=== PATIENT | female | born 1965 | race Caucasian/White ===

== ENCOUNTER → 2020-12-26 15:02 | Outpatient (BNVA) | payer MEDICARE, MEDICAID, SELFPAY | PROVIDERS: Family Provider Family Medicine; PCP Nurse Practitioner; Visit Provider Nurse Practitioner | DX: G43.909 Migraine, unspecified, not intractable, without status migrainosus (principal); F31.9 Bipolar disorder, unspecified; E78.2 Mixed hyperlipidemia; J30.89 Other allergic rhinitis; E55.9 Vitamin D deficiency, unspecified; Z91.030 Bee allergy status; Z79.890 Hormone replacement therapy | CPT/HCPCS: 80053; 80061; 81000; 82306; 82607; 84443; 85025 ==

== ENCOUNTER → 2021-04-09 11:04 | Outpatient (BNVA) | payer MEDICARE, MEDICAID, SELFPAY | PROVIDERS: Family Provider Family Medicine; PCP Nurse Practitioner; Visit Provider Nurse Practitioner | DX: E78.2 Mixed hyperlipidemia (principal); E55.9 Vitamin D deficiency, unspecified; J98.01 Acute bronchospasm; F31.9 Bipolar disorder, unspecified; J30.89 Other allergic rhinitis; Z79.890 Hormone replacement therapy | CPT/HCPCS: 80053; 80061; 82306 ==

== ENCOUNTER → 2021-09-18 13:31 | Outpatient (BNVA) | payer MEDICARE, SELFPAY | PROVIDERS: Family Provider Family Medicine; PCP Nurse Practitioner; Visit Provider Nurse Practitioner | DX: E78.2 Mixed hyperlipidemia (principal); E55.9 Vitamin D deficiency, unspecified; Z12.39 Encounter for other screening for malignant neoplasm of breast | CPT/HCPCS: 80053; 80061; 82306; 83721 ==

== ENCOUNTER 2022-07-09 15:10 | Emergency (ER) | payer MEDICARE, SELFPAY ==
[2022-07-09 16:08] VITALS: BP 142/84; PULSE 77; RESP 18; TEMP 36.8; O2SAT 97; BMI 25.8
[2022-07-09 17:24] LABS: Add Urine Microscopic? YES; Bacteria Urine 2+ /hpf; Bilirubin Urine Neg (Negative); Blood Urine 3+ (Negative); Glucose Urine UA Norm (Normal); Ketones Urine Negative (Negative); Leukocyte Esterase Urine 2+ (Negative); Nitrate Urine Negative (Negative); Protein Urine 1+ (Negative); RBC Urine 0-4 /hpf (0-2); Specific Gravity, Urine 1.015 (1.005-1.030); Squamous Epithelial Cell Urine 0-4 /hpf (0-5); Urine Appearance Hazy (CLEAR); Urine Color Yellow (Yellow); Urobilinogen Urine Norm (Negative); WBC Urine >100 /hpf (0-5); pH Urine 6 (5-7)
[2022-07-09 17:25] LABS: Add Urine Culture? Yes
== END 2022-07-09 18:58 | disposition left against medical advice (07) ==
PROVIDERS: Emergency Provider Family Medicine; PCP Nurse Practitioner
DX: Z53.21 Procedure and treatment not carried out due to patient leaving prior to being seen by health care provider (principal); N23 Unspecified renal colic
CPT/HCPCS: 81001; 87077; 87086; 87186

== ENCOUNTER → 2022-07-17 11:05 | Outpatient (BNVA) | payer MEDICARE, SELFPAY | PROVIDERS: PCP Nurse Practitioner; Visit Provider Nurse Practitioner | DX: Z11.3 Encounter for screening for infections with a predominantly sexual mode of transmission (principal); R10.2 Pelvic and perineal pain; N39.0 Urinary tract infection, site not specified; B96.20 Unspecified Escherichia coli [E. coli] as the cause of diseases classified elsewhere | CPT/HCPCS: 74018; 87491; 87591 ==

== ENCOUNTER → 2023-06-04 09:38 | Outpatient (BNVA) | payer MEDICARE, SELFPAY | PROVIDERS: PCP Nurse Practitioner; Visit Provider Nurse Practitioner | DX: R00.2 Palpitations (principal); F31.9 Bipolar disorder, unspecified; E78.2 Mixed hyperlipidemia; F41.9 Anxiety disorder, unspecified; F32.9 Major depressive disorder, single episode, unspecified; M25.551 Pain in right hip; J45.909 Unspecified asthma, uncomplicated; J98.01 Acute bronchospasm; E55.9 Vitamin D deficiency, unspecified | CPT/HCPCS: 71046; 73502; 80053; 80061; 82306; 84443 ==

== ENCOUNTER 2023-12-08 10:51 | Emergency (ER) | payer MEDICARE, SELFPAY ==
--- NOTE | 2023-12-08 10:54 | ECG_ITS ---
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 Measurements Intervals [place] Rate: 73 P: 59 UT: 171 QRS: 31 QRSD: 84 T: 55 QT: 366 QTc: 404 Interpretive Statements SINUS RHYTHM POSSIBLE ANTERIOR MYOCARDIAL INFARCTION , OF INDETERMINATE AGE [30 ms Q WAVE IN V3/V4, OR R < 0.2 mV IN V4] Compared to ECG 08/08/2018 13:45:00 Myocardial infarct finding now present Electronically Signed On 12-08-2023 11:25:26 CDT by Rober Shine M.D. [email or web address] specialty [id number] f
--- NOTE | 2023-12-08 10:54 | XR_ITS ---
WS: [id number] Exam: XR chest 1V portable [id number] Date/Time of Exam: 12/08/2023 11:08 AM Reason For Exam: cp Comparison 06/04/2023. The lungs are clear and fully expanded. Normal cardiomediastinal silhouette. No pleural effusions. [place] structures are intact. IMPRESSION: 1. No acute cardiopulmonary process.
[2023-12-08 11:07] VITALS: BP 153/95; PULSE 86; TEMP 36.6; O2SAT 96; BMI 26.9
[2023-12-08 11:22] LABS: Basophils % 0.6 %; Eosinophils # 0.2 10^3/uL (0.0-0.8); Eosinophils % 2.3 %; Hematocrit 48.7 % (36-47); Lymphocytes # 1.7 10^3/uL (0.8-4.8); Lymphocytes % 26.1 %; Mean Corpuscular HGB Conc 33.5 g/dL (30-55); Mean Corpuscular Hemoglobin 31.7 pg (27-33); Mean Corpuscular Volume 94.6 fl (85-98); Mean Platelet Volume 9.4 fL (7.4-10.4); Monocytes # 0.5 10^3/uL (0.2-0.9); Monocytes % 7.6 %; Neutrophils # 4.08 10^3/uL (1.8-7.7); Neutrophils % 63.1 %; Nucleated Red Blood Cells % 0 %; Platelet Count 218 10^3/cmm (157-399); Red Blood Count 5.15 10^6/uL (3.85-5.65); Red Cell Distribution Width 12.7 % (12.1-15.1); White Blood Count 6.47 10^3/uL (3.29-11.43)
[2023-12-08 11:34] VITALS: BP 164/100; PULSE 74; RESP 16; O2SAT 94
[2023-12-08 11:35] LABS: INR 0.92 (0.8-1.2)
--- NOTE | 2023-12-08 11:35 | ED_ITS ---
HPI - Chest Pain 2 General: Chief Complaint: Chest Pain Stated Complaint: CHEST PAIN Time Seen by Provider: 12/08/23 11:21 Source: patient Mode of arrival: ambulatory Limitations: no limitations History of Present Illness: 58-year-old female states that she has b een having sharp chest pains for the last 2 weeks. She states it is intermittent in nature rates her pain a 2 out of 10 currently. She states her blood pressures been running high she does have a history of hypertension but states she has been noncompliant with her meds and has not taken them for months. Denies any dyspnea denies any vomiting or diarrhea. Associated symptoms: Deny abdominal pain, dyspnea, fever(s), nausea or vomiting Review of Systems 2 Const: Denies: fever(s), chills, body aches or change in appetite ENMT: Denies: throat pain or dental pain Card: Reports: chest pain Resp: Denies: dyspnea GI: Denies: abdominal pain, nausea, vomiting or diarrhea : Denies: dysuria Musc: Denies: neck pain or back pain Skin/Breast: Denies: rash Neuro: Denies: headache(s) PFSH ED 2 PFSH: Medical History Vitamin D deficiency Hyperlipidemia, mixed Hormone replacement therapy (HRT) Migraine History of traumatic head injury 2001 horse kick in head short term memory loss Allergy to walnuts Allergy to honey bee venom Anxiety and depression Environmental and seasonal allergies Bipolar disorder Surgical History History of colposcopy with cervical biopsy History of angiography 2004 History of esophagogastroduodenoscopy (EGD) History of left breast biopsy History of tonsillectomy age 13 History of oral surgery for dentures History of rhinoplasty 1979 History of hysterectomy 2004 with right SO has left Family History Mother Cancer Cervical, thyroid, ovary Brother Chronic kidney disease (CKD) Grandfather Cancer lung Other Anesthesia complication Dementia Diabetes Hypertension Lung disease Psychiatric illness Stroke Suicide Social History Smoking and tobacco/nicotine status: current every day tobacco/nicotine user Second hand smoke exposure: No Alcohol intake: current Substance/Drug Use: unknown Adopted: No Caregiver/support person: No Lives independently: Yes Household members: significant other Housing: Manufactured/Mobile home Marital status: Single Number of children: 2 service: No Current occupational status: disabled Current occupational exposures/hazards: No Pets and animals: Yes Pets & animals: farm animals Do you think of yourself as: Straight/Heterosexual Current gender identity: Female Physical Exam 2 Const: COMMON NORMALS: no acute distress, patient oriented x3 and healthy appearing HENMT: COMMON NORMALS: normocephalic and atraumatic HEAD & SCALP: n ormocephalic and atraumatic Neck/C-Spine: COMMON NORMALS: full ROM and supple Chest: COMMONS NORMALS: normal inspection of the chest and normal palpation of entire chest wall Resp: COMMON NORMALS: normal respiratory effort, No retractions, No use of accessory muscles and clear to auscultation bilaterally AUSCULTATION: clear to auscultation bilaterally Cardio: COMMON NORMALS: regular rate, regular rhythm and No murmurs present (Cardio) RATE: regular rate RHYTHM: regular rhythm GI: COMMON NORMALS: Normal to inspection, nondistended, normoactive bowel sounds present, Soft to palpation, non-tender and no masses PALPATION: Yes Soft to palpation Extremity: COMMON NORMALS: normal to inspection and full ROM Neuro: COMMON NORMALS: patient oriented x3, moves all extremities and no focal motor deficits Psych: COMMON NORMALS: mental status grossly normal, Normal thought process present and cooperative THOUGHT PROCESS: Normal thought process present Skin: COMMON NORMALS: no rashes or lesions noted and no wounds GENERAL SKIN EXAM: no rashes or lesions noted Course 2 Vital Signs: Vital signs: Vital Signs Temperature 97.9 F 12/08/23 11:07 Pulse Rate 74 12/08/23 11:34 Respiratory Rate 16 12/08/23 11:34 Blood Pressure 164/100 12/08/23 11:34 Pulse Oximetry 94 12/08/23 11:34 Oxygen Delivery Me thod Room Air 12/08/23 11:34 MDM - Chest Pain Medical Decision Making Patient presents for chest pain is atypical in nature it has been going on for weeks her initial troponin here is negative she is hypertensive but she has been noncompliant with her meds for months we will refill her metoprolol she is follow-up with PCP and return if worsening. Medical Records I reviewed the patient's medical records. Lab Data I reviewed the patient's lab results. 12/08/23 11:12 12/08/23 11:12 Laboratory Results WBC 6.47 10^3/uL (3.29-11.43) 12/08/23 11:12 RBC 5.15 10^6/uL (3.85-5.65) 12/08/23 11:12 Hgb 16.30 g/dL (11.27-16.99) 12/08/23 11:12 Hct 48.7 % (36-47) H 12/08/23 11:12 MCV 94.6 fl (85-98) 12/08/23 11:12 MCH 31.7 pg (27-33) 12/08/23 11:12 MCHC 33.5 g/dL (30-55) 12/08/23 11:12 RDW 12.7 % (12.1-15.1) 12/08/23 11:12 Plt Count 218 10^3/cmm (157-399) 12/08/23 11:12 MPV 9.4 fL (7.4-10.4) 12/08/23 11:12 Neut % (Auto) 63.1 % 12/08/23 11:12 Lymph % (Auto) 26.1 % 12/08/23 11:12 [place] % (Auto) 7.6 % 12/08/23 11:12 Eos % (Auto) 2.3 % 12/08/23 11:12 Baso % (Auto) 0.6 % 12/08/23 11:12 Neut # (Auto) 4.08 10^3/uL (1.8-7.7) 12/08/23 11:12 Lymph # (Auto) 1.7 10^3/uL (0.8-4.8) 12/08/23 11:12 [place] # (Auto) 0.5 10^3/uL (0.2-0.9) 12/08/23 11:12 Eos # (Auto) 0.2 10^3/uL (0.0-0.8) 12/08/23 11:12 Baso # (Auto) 0.0 10^3/uL (0.0-0.1) 12/08/23 11:12 Nucleated RBC % (auto) 0 % 12/08/23 11:12 Nucleated RBCs # 0.0 /100WBC 12/08/23 11:12 PT 12.60 SECONDS (12.1-14.9) 12/08/23 11:12 INR 0.92 (0.8-1.2) 12/08/23 11:12 Sodium 140 mmol/L (136-145) 12/08/23 11:12 Potassium 4.6 mmol/L (3.5-5.1) 12/08/23 11:12 Chloride 105 mmol/L (98-107) 12/08/23 11:12 Carbon Dioxide 25 mmol/L (22-29) 12/08/23 11:12 Anion Gap 14.6 (5-19) 12/08/23 11:12 BUN 8 mg/dL (6-20) 12/08/23 11:12 Creatinine 0.6 mg/dL (0.5-0.9) 12/08/23 11:12 GFR Calculation 103.0 mL/min (90-130) 12/08/23 11:12 Glucose 103 mg/dL (65-115) 12/08/23 11:12 Calculated Osmolality 289 mOsm/kg (285-295) 12/08/23 11:12 Calcium 9.3 mg/dL (8.5-10.5) 12/08/23 11:12 Total Bilirubin 0.4 mg/dL (0.15-1.2) 12/08/23 11:12 AST 13 U/L (0-32) 12/08/23 11:12 ALT 18 U/L (0-33) 12/08/23 11:12 Alkaline Phosphatase 102 U/L (35-105) 12/08/23 11:12 Troponin T Baseline 9 ng/L (0-10) 12/08/23 11:12 Total Protein 6.7 g/dL (6.6-8.7) 12/08/23 11:12 Albumin 4.5 g/dL (3.5-5.2) 12/08/23 11:12 Globulin 2.2 g/dL (1.3-4.6) 12/08/23 11:12 Lipase 25 U/L (13-60) 12/08/23 11:12 All radiology interpretation(s) finalized by discharge EKG Data EKG 1: I personally reviewed and interpreted this EKG as follows: EKG interpretation date: 12/08/23 EKG interpretation time: 11:00 Interpretation: nsr hr [address] or t wave abnormalities qrs 84 qtc 392 Discharge Plan Discharge Patient Disposition: Home Clinical Impression: Chest pain Condition: Stable Prescriptions: Continued metoprolol succinate 50 mg tablet extended release 24 hr 50 mg PO DAILY Qty: 30 5RF No Action escitalopram oxalate [Lexapro] 20 mg tablet 20 mg PO DAILY Qty: 30 5RF fenofibrate nanocrystallized [Tricor] 145 mg tablet 145 mg PO DAILY Qty: 30 5RF hydroxyzine pamoate 25 mg capsule 25 mg PO BID PRN (Reason: anxiety) Qty: 60 5RF Rx Instructions: for anxiety nitroglycerin 0.4 mg tablet, sublingual 0.4 mg sublingual Q5M PRN (Reason: chest pain) Qty: 25 0RF Rx Instructions: do not exceed 3 doses per episode budesonide-formoterol [Symbicort] 160-4.5 mcg/actuation HFA aerosol inhaler 1 puff inhalation BID Qty: 10.2 5RF albuterol sulfate [ProAir HFA] 90 mcg/actuation HFA aerosol inhaler 2 puff inhalation Q6H PRN (Reason: shortness of breath or wheezing) Qty: 8.5 5RF epinephrine [EpiPen Jr 2-Bruce] 0.15 mg/0.3 mL auto-injector 0.15 mg IM Q30M PRN (Reason: anaphylaxis) Qty: 2 0RF Rx Instructions: do not exceed 12 doses per 24 hrs Aspir-81 81 mg Tablet,Delayed Release (Dr/Ec) 81 mg PO DAILY Discharge Orders: Discharge ED (Routine); Ordered 12/08/23 Ordered By: Dinora Mak Referrals: Jacinto Deleon, APPRENT[facility] [Primary Care Provider] - 1-3 days Discharge Diet: Advance as tolerated Discharge Activity: Resume usual activity Patient Instructions: Chest Pain (ED) Coding Level of Care Code ED [employer]ary [employer] Drilling Machine Operator for Luis Fernandog Emma
[2023-12-08 11:39] LABS: Alanine Aminotransferase 18 U/L (0-33); Albumin Level 4.5 g/dL (3.5-5.2); Alkaline Phosphatase 102 U/L (35-105); Anion Gap 14.6 (5-19); Aspartate Amino Transferase 13 U/L (0-32); Blood Urea Nitrogen 8 mg/dL (6-20); Calcium 9.3 mg/dL (8.5-10.5); Carbon Dioxide 25 mmol/L (22-29); Chloride 105 mmol/L (98-107); Creatinine Clr Calc Pharmacy 107.5888; Globulin 2.2 g/dL (1.3-4.6); Glucose 103 mg/dL (65-115); Lipase 25 U/L (13-60); Osmolality Calculated 289 mOsm/kg (285-295); Potassium 4.6 mmol/L (3.5-5.1); Sodium 140 mmol/L (136-145); Total Bilirubin 0.4 mg/dL (0.15-1.2); Total Protein 6.7 g/dL (6.6-8.7)
[2023-12-08 11:40] LABS: Troponin(5th) Baseline 9 ng/L (0-10)
[2023-12-08] MEDS: hyDRALAzine 20 mg/mL INJ 1 mL 10 MG IVP (11:41)
--- NOTE | 2023-12-08 11:46 | PC.PHAR ---
PT STATES SHE KEEPS AN EPIPEN JR, HYDROYZINE PAMOATE 25 MG, AND NTG 0.4MG HANDY BUT STOPPED TAKING ALL OTHER MEDS TO GIVE HER BODY A BREAK. 12/08/23
[2023-12-08 12:15] VITALS: BP 140/87; PULSE 63; RESP 16; O2SAT 96
[2023-12-08 12:21] VITALS: BP 140/87; PULSE 63; RESP 16; O2SAT 96
== END 2023-12-08 12:22 | disposition home or self-care (01) ==
PROVIDERS: Emergency Provider Emergency Medicine; PCP Nurse Practitioner
DX: R07.9 Chest pain, unspecified (principal); Z79.82 Long term (current) use of aspirin; Z72.0 Tobacco use; E78.2 Mixed hyperlipidemia
CPT/HCPCS: 36415; 71045; 80053; 83690; 84484; 85025; 85610; 93005; 96374; 99285; J0360

== ENCOUNTER 2025-02-21 14:57 | Emergency (ER) | payer MEDICARE, SELFPAY ==
[2025-02-21 15:02] VITALS: BP 171/108; PULSE 109; RESP 16; TEMP 36.7; O2SAT 97
--- NOTE | 2025-02-21 15:14 | ECG_ITS ---
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 Measurements Intervals [place] Rate: 94 P: 75 DE: 168 QRS: 53 QRSD: 83 T: 69 QT: 359 QTc: 449 Interpretive Statements SINUS RHYTHM POSSIBLE LEFT ATRIAL ENLARGEMENT [-0.1mV P-WAVE IN V1/V2] Compared to ECG 12/08/2023 11:00:12 Myocardial infarct finding no longer present Electronically Signed On 02-23-2025 22:08:10 CDT by Patricia Brasher M.D. [id number]
[2025-02-21 15:40] LABS: Basophils # 0.1 10^3/uL (0.0-0.1); Basophils % 0.8 %; Eosinophils # 0.2 10^3/uL (0.0-0.8); Eosinophils % 2.3 %; Hematocrit 46.8 % (36-47); Lymphocytes % 25.8 %; Mean Corpuscular HGB Conc 35.9 g/dL (30-55); Mean Corpuscular Hemoglobin 33.1 pg (27-33); Mean Corpuscular Volume 92.3 fl (85-98); Monocytes # 0.6 10^3/uL (0.2-0.9); Monocytes % 7.3 %; Neutrophils % 63.5 %; Nucleated Red Blood Cells % 0 %; Platelet Count 214 10^3/cmm (157-399); Red Blood Count 5.07 10^6/uL (3.85-5.65); Red Cell Distribution Width 12.1 % (12.1-15.1); White Blood Count 7.86 10^3/uL (3.29-11.43)
[2025-02-21 15:45] VITALS: BP 188/102; PULSE 93; RESP 15; O2SAT 94
[2025-02-21 15:56] LABS: Alanine Aminotransferase 15 U/L (0-33); Albumin Level 4.5 g/dL (3.5-5.2); Alkaline Phosphatase 107 U/L (35-105); Anion Gap 19.9 (5-19); Aspartate Amino Transferase 13 U/L (0-32); Blood Urea Nitrogen 7 mg/dL (6-20); Calcium 9.7 mg/dL (8.5-10.5); Carbon Dioxide 20 mmol/L (22-29); Chloride 101 mmol/L (98-107); Creatine Phosphokinase 53 U/L (26-192); Creatinine Clr Calc Pharmacy 128.9558; Globulin 2.9 g/dL (1.3-4.6); Glomerular Filtration Rate 126.7 mL/min (90-130); Glucose 87 mg/dL (65-115); Osmolality Calculated 281 mOsm/kg (285-295); Potassium 3.9 mmol/L (3.5-5.1); Sodium 137 mmol/L (136-145); Total Bilirubin 0.6 mg/dL (0.15-1.2); Total Protein 7.4 g/dL (6.6-8.7)
[2025-02-21 15:57] LABS: Lactic Sepsis W/Reflex 0.8 mmol/L (0.5-2.2)
[2025-02-21 16:05] VITALS: BP 162/96; PULSE 86; RESP 18; O2SAT 94
--- NOTE | 2025-02-21 16:15 | ED_ITS ---
HPI - Seizure 2 General: Chief Complaint: Seizure Stated Complaint: urgent care sent, seizures Time Seen by Provider: 02/21/25 15:13 History of Present Illness: HPI Narrative: 59-year-old female who presents emergenc y room reporting that she has had multiple seizures at home. She said she has had these in the past that precipitated by stress she has seen Dr. Milligan for the many years ago she is unsure if she ever had an EEG. She states today it happened while he was combing her hair she had several more after that where she remembered what happened and was awake for the episodes. Did not bite her tongue she did not lose consciousness. No recent illness fever sweats chills no chest or abdominal pain Associated symptoms: Deny chest pain, chills or fever(s) Related Data Home Medications ?Medication ?Instructions ?Recorded ?Confirmed aspirin 81 mg tablet,delayed 81 mg PO DAILY 12/08/23 0 12/11/23 release Previous Rx's ?Medication ?Instructions ?Recorded epinephrine 0.15 mg/0.3 mL 0.15 mg (0.3 mL) IM Q30M IN N 03/02/23 injection,auto-injector (EpiPen Jr anaphylaxis #2 ea 2-Bruce) albuterol sulfate 90 mcg/actuation 2 puff inhalation Q 6H PRN 12/11/23 aerosol inhaler (ProAir HFA) shortness of breath or wh eezing #8.5 grams budesonide-formoterol HFA 160 1 puff inhalation BID #1 0.2 grams 12/11/23 mcg-4.5 mcg/actuation aerosol inhaler (Symbicort) escitalopram oxalate 20 mg tablet 20 mg PO DAILY #30 t abs 12/11/23 (Lexapro) fenofibrate nanocrystallized 145 145 mg PO DAILY #30 t abs 12/11/23 mg tablet (Tricor) hydroxyzine pamoate 25 mg capsule 25 mg PO BID PRN anx iety #60 caps 12/11/23 metoprolol succinate 50 mg 50 mg PO DAILY #30 tabs tablet,extended release 24 hr nitroglycerin 0.4 mg sublingual 0.4 mg sublingual Q5M PRN chest 02/09/24 tablet pain #25 tabs Allergies Allergy/AdvReac Type Severity Reaction Status Date / Time Penicillins Allergy Unknown shock Verified 12/11/23 10:50 Review of Systems 2 Const: Denies: fever(s) or chills Card: Denies: chest pain Resp: Denies: dyspnea GI: Denies: abdominal pain : Denies: dysuria, urinary frequency or urinary urgency Musc: Denies: neck pain or back pain Skin/Breast: Denies: rash PFSH ED 2 PFSH: Medical History Vitamin D deficiency Hyperlipidemia, mixed Hormone replacement therapy (HRT) Migraine History of traumatic head injury 2001 horse kick in head short term memory loss Allergy to walnuts Allergy to honey bee venom Anxiety and depression Environmental and seasonal allergies Bipolar disorder Surgical History History of colposcopy with cervical biopsy History of angiography 2004 History of esophagogastroduodenoscopy (EGD) History of left breast biopsy History of tonsillectomy age 13 History of oral surgery for dentures History of rhinoplasty 1979 History of hysterectomy 2004 with right SO has left Family History Mother Cancer Cervical, thyroid, ovary Brother Chronic kidney disease (CKD) Grandfather Cancer lung Other Anesthesia complication Dementia Diabetes Hypertension Lung disease Psychiatric illness Stroke Suicide Social History Smoking and tobacco/nicotine status: current every day tobacco/nicotine user Second hand smoke exposure: No Alcohol intake: current Substance/Drug Use: unknown Adopted: No Caregiver/support person: No Lives independently: Yes Household members: significant other Housing: Manufactured/Mobile home Marital status: Single Number of children: 2 service: No Current occupational status: disabled Current occupational exposures/hazards: No Pets and animals: Yes Pets & animals: farm animals Do you think of yourself as: Straight/Heterosexual Current gender identity: Female Physical Exam 2 Const: COMMON NORMALS: no acute distress GENERAL APPEARANCE: cooperative and comfortable ORIENTATION/CONSCIOUSNESS: Yes awake, Yes oriented to person, Yes oriented to place and Yes oriented to time HENMT: COMMON NORMALS: normocephalic, atraumatic and hearing grossly normal bilaterally HEAD & SCALP: normocephalic and atraumatic Resp: COMMON NORMALS: normal respiratory effort, No retractions, No use of accessory muscles and clear to auscultation bilaterally AUSCULTATION: clear to auscultation bilaterally Cardio: COMMON NORMALS: regular rate, regular rhythm and No murmurs present (Cardio) RATE: regular rate RHYTHM: regular rhythm GI: COMMON NORMALS: Soft to palpation and No hepatosplenomegaly present A USCULTATION: Yes normoactive bowel sounds PALPATION: Yes Soft to palpation, No Tenderness to palpation present (GI), No Guarding due to palpation present (GI) and Yes No hepatosplenomegaly present Extremity: COMMON NORMALS: normal to inspection, capillary refill normal, no clubbing, cyanosis or edema, no calf tenderness and no pedal edema Neuro: SENSORIUM/ORIENTATION: Yes oriented to person, Yes oriented to place and Yes oriented to time Skin: COMMON NORMALS: no rashes or lesions noted GENERAL SKIN EXAM: no rashes or lesions noted Course 2 Vital Signs: Vital signs: Vital Signs Temperature 98.0 F 02/21/25 15:02 Pulse Rate 86 02/21/25 16:55 Respiratory Rate 16 02/21/25 16:35 Blood Pressure 152/103 02/21/25 16:55 Pulse Oximetry 94 02/21/25 16:55 Oxygen Delivery Me thod Room Air 02/21/25 15:02 MDM - Seizure MDM Narrative Medical decision making narrative: No evidence of seizure at this time history is even a little questionable where she states she can remember these episodes CPK and lactic acid are normal despite the fact she reports she has had multiple seizures today. She states she has seen neurology in the past was never placed on anything and tells me they were stress-induced all of this makes me suspicious that these are functional neurologic episodes. She has no focal neurologic deficits when she is initially seen. Will discharge her home with no medications this time set up outpatient EEG and follow-up with neurology Lab Data 02/21/25 15:32 02/21/25 15:32 Labs: Laboratory Results WBC 7.86 10^3/uL (3.29-11.43) 02/21/25 15:32 RBC 5.07 10^6/uL (3.85-5.65) 02/21/25 15:32 Hgb 16.80 g/dL (11.27-16.99) 02/21/25 15:32 Hct 46.8 % (36-47) 02/21/25 15:32 MCV 92.3 fl (85-98) 02/21/25 15:32 MCH 33.1 pg (27-33) H 02/21/25 15:32 MCHC 35.9 g/dL (30-55) 02/21/25 15:32 RDW 12.1 % (12.1-15.1) 02/21/25 15:32 Plt Count 214 10^3/cmm (157-399) 02/21/25 15:32 MPV 9.0 fL (7.4-10.4) 02/21/25 15:32 Neut % (Auto) 63.5 % 02/21/25 15:32 Lymph % (Auto) 25.8 % 02/21/25 15:32 [place] % (Auto) 7.3 % 02/21/25 15:32 Eos % (Auto) 2.3 % 02/21/25 15:32 Baso % (Auto) 0.8 % 02/21/25 15:32 Neut # (Auto) 5.00 10^3/uL (1.8-7.7) 02/21/25 15:32 Lymph # (Auto) 2.0 10^3/uL (0.8-4.8) 02/21/25 15:32 [place] # (Auto) 0.6 10^3/uL (0.2-0.9) 02/21/25 15:32 Eos # (Auto) 0.2 10^3/uL (0.0-0.8) 02/21/25 15:32 Baso # (Auto) 0.1 10^3/uL (0.0-0.1) 02/21/25 15:32 Nucleated RBC % (auto) 0 % 02/21/25 15:32 Nucleated RBCs # 0.0 /100WBC 02/21/25 15:32 Sodium 137 mmol/L (136-145) 02/21/25 15:32 Potassium 3.9 mmol/L (3.5-5.1) 02/21/25 15:32 Chloride 101 mmol/L (98-107) 02/21/25 15:32 Carbon Dioxide 20 mmol/L (22-29) L 02/21/25 15:32 Anion Gap 19.9 (5-19) H 02/21/25 15:32 BUN 7 mg/dL (6-20) 02/21/25 15:32 Creatinine 0.5 mg/dL (0.5-0.9) 02/21/25 15:32 GFR Calculation 126.7 mL/min (90-130) 02/21/25 15:32 Glucose 87 mg/dL (65-115) 02/21/25 15:32 Calculated Osmolality 281 mOsm/kg (285-295) L 02/21/25 15:32 Lactic Acid 0.8 mmol/L (0.5-2.2) 02/21/25 15:32 Calcium 9.7 mg/dL (8.5-10.5) 02/21/25 15:32 Total Bilirubin 0.6 mg/dL (0.15-1.2) 02/21/25 15:32 AST 13 U/L (0-32) 02/21/25 15:32 ALT 15 U/L (0-33) 02/21/25 15:32 Alkaline Phosphatase 107 U/L (35-105) H 02/21/25 15:32 Creatine Kinase 53 U/L (26-192) 02/21/25 15:32 Total Protein 7.4 g/dL (6.6-8.7) 02/21/25 15:32 Albumin 4.5 g/dL (3.5-5.2) 02/21/25 15:32 Globulin 2.9 g/dL (1.3-4.6) 02/21/25 15:32 No radiology studies performed this visit Discharge Plan Discharge Patient Disposition: Home Clinical Impression: Functional neurological symptom disorder with attacks or seizures Condition: Stable Prescriptions: No Action albuterol sulfate [ProAir HFA] 90 mcg/actuation HFA aerosol inhaler 2 puff inhalation Q6H PRN (Reason: shortness of breath or wheezing) Qty: 8.5 5RF budesonide-formoterol [Symbicort] 160-4.5 mcg/actuation HFA aerosol inhaler 1 puff inhalation BID Qty: 10.2 5RF escitalopram oxalate [Lexapro] 20 mg tablet 20 mg PO DAILY Qty: 30 5RF fenofibrate nanocrystallized [Tricor] 145 mg tablet 145 mg PO DAILY Qty: 30 5RF hydroxyzine pamoate 25 mg capsule 25 mg PO BID PRN (Reason: anxiety) Qty: 60 5RF Rx Instructions: for anxiety metoprolol succinate 50 mg tablet extended release 24 hr 50 mg PO DAILY Qty: 30 5RF epinephrine [EpiPen Jr 2-Bruce] 0.15 mg/0.3 mL auto-injector 0.15 mg IM Q30M PRN (Reason: anaphylaxis) Qty: 2 0RF Rx Instructions: do not exceed 12 doses per 24 hrs nitroglycerin 0.4 mg tablet, sublingual 0.4 mg sublingual Q5M PRN (Reason: chest pain) Qty: 25 0RF Rx Instructions: do not exceed 3 doses per episode Aspir-81 81 mg Tablet,Delayed Release (Dr/Ec) 81 mg PO DAILY Discharge Orders: Discharge ED (Routine); Ordered 02/21/25 Ordered By: Osmar Pandey Referrals: Jacinto Deleon, [facility] [Primary Care Provider, Family Practice] Discharge Diet: Usual diet Discharge Activity: Increase activity as tolerated Patient Instructions: Opioid Safety, Pain Management Activity Restrictions/Additional Instructions: Thank you for choosing [facility] for your healthcare needs today. It is very important that you follow up as instructed or that you return to the Emergency Department should you have concerns or if your condition changes or worsens in any way. You were seen in the emergency room for complaints of seizures. Your neurologic exam is normal. Based on your history these sound like functional neurologic episodes with seizure-like activity. Will set you up for an outpatient EEG and follow-up with neurology do not recommend any antiseizure medicines at this time. Print Language: Estonian Coding Level of Care Code ED Tax Auditor for Tomeka Carter
[2025-02-21 16:35] VITALS: BP 152/103; PULSE 87; RESP 16; O2SAT 95
[2025-02-21 16:55] VITALS: BP 152/103; PULSE 86; O2SAT 94
== END 2025-02-21 16:56 | disposition home or self-care (01) ==
PROVIDERS: Emergency Provider Family Medicine; PCP Nurse Practitioner
DX: R29.818 Other symptoms and signs involving the nervous system (principal); R56.9 Unspecified convulsions; Z72.0 Tobacco use; E78.2 Mixed hyperlipidemia
CPT/HCPCS: 36415; 80053; 82550; 83605; 85025; 93005; 99284

== ENCOUNTER → 2025-03-02 11:24 | Outpatient (BNVA) | payer MEDICARE, SELFPAY | PROVIDERS: PCP Nurse Practitioner; Visit Provider Nurse Practitioner | DX: R00.2 Palpitations (principal); E55.9 Vitamin D deficiency, unspecified | CPT/HCPCS: 80053; 82306; 82607; 84443; 85025 ==

== ENCOUNTER 2025-03-17 15:10 | Outpatient (CLI) | payer MEDICARE, SELFPAY ==
--- NOTE | 2025-03-17 15:15 | MR_ITS ---
WS: [id number] MRI BRAIN WITHOUT CONTRAST HISTORY: R56.9 - Unspecified convulsions COMPARISON: None available. TECHNIQUE: Diffusion imaging, multiplanar T1, T2 and FLAIR imaging obtained. Diffusion imaging is normal. No significant volume loss or atrophy. No hippocampal atrophy. Moderate bilateral periventricular and subcortical white matter lesions probably from small vessel disease. No large territory infarct. Negative cerebellum. No brainstem lesion. Ventricles and extra-axial spaces are normal. No inferior displacement of cerebellar tonsils. The sella turcica and pituitary gland are unremarkable. Dural venous sinuses and [place] demonstrate no abnormality on this unenhanced studies. Paranasal sinuses: Clear. Mastoid air cells: Normal. Calvarium and scalp: Intact. MR/MR head wo con* [id number] IMPRESSION: 1. Normal diffusion imaging. No acute infarct. 2. Moderate small vessel ischemic type changes in the periventricular white ma tter. 3. No significant atrophy or volume loss.
== END 2025-03-17 15:11 | disposition home or self-care (01) ==
LOC: RAD 15:12
PROVIDERS: PCP Nurse Practitioner; Visit Provider Nurse Practitioner
DX: R56.9 Unspecified convulsions (principal)
CPT/HCPCS: 70551